=== PATIENT | male | born 1995 | race Caucasian/White ===

== ENCOUNTER 2020-01-18 10:28 | Emergency (ER) | payer BC, OTHER ==
[2020-01-18 11:30] VITALS: BP 133/81
--- NOTE | 2020-01-18 12:05 | UC ---
General HPI - HPI Summary HPI Summary: 24 yo WM sent by his boss to e sure he can work as he was witnessed to have episode of sneezing but without URI sx, pt denies f/c/n/v/d/or acute URI sx currently. - History of Current Complaint Chief Complaint: UCGeneralIllness Stated Complaint: CONGESTION/SINUSES Time Seen by Provider: 01/18/20 11:30 Hx Obtained From: Patient Onset/Duration: Sudden Onset Pain Intensity: 0 - Allergy/Home Medications Allergies/Adverse Reactions: Allergies Allergy/AdvReac Type Severity Reaction Status Date / Time No Known Allergies Allergy Verified 01/18/20 11:27 Home Medications: Home Medications NK [No Home Medications Reported] 01/18/20 [History Confirmed 01/18/20] PMH/Surg Hx/FS Hx/Imm Hx Other History Of: Negative For: HIV, Hepatitis B, Hepatitis C - Surgical History Surgical History: Yes Surgery Procedure, Year, and Place: elbow surgery 2008 - Family History Known Family History: Positive: Cardiac Disease, Non-Contributory Negative: Renal Disease - Social History Occupation: Employed Full-time Alcohol Use: Occasionally Substance Use Type: None Smoking Status (MU): Never Smoked Tobacco Type: Smokeless Tobacco Amount Used/How Often: 1 can/week - Immunization History Most Recent Influenza Vaccination: 2014 Review of Systems All Other Systems Reviewed And Are Negative: Yes Constitutional: Positive: Negative Skin: Positive: Negative Eyes: Positive: Negative ENT: Positive: Negative Cardiovascular: Positive: Negative Genitourinary: Positive: Negative Motor: Positive: Negative Neurovascular: Positive: Negative Neurological/Mental Status: Positive: Negative Psychological: Positive: Negative Physical Exam Triage Information Reviewed: Yes Appearance: Well-Appearing Vital Signs: Initial Vital Signs Temp 36.1 C 01/18/20 11:26 Pulse 60 01/18/20 11:26 Resp 14 01/18/20 11:26 BP 133/81 01/18/20 11:26 Pulse Ox 100 01/18/20 11:26 Vital Signs Reviewed: Yes Eye Exam: Normal Eyes: Positive: Conjunctiva Clear ENT: Positive: Normal ENT inspection Respiratory: Positive: Lungs clear Cardiovascular Exam: Normal Cardiovascular: Positive: RRR Musculoskeletal Exam: Normal Psychological Exam: Normal Skin Exam: Normal Course/Dx - Course Course Of Treatment: Pt is currenty well, displays NO s/s of illness or URI sx, ok to work, note given - Diagnoses Provider Diagnosis: Well adult exam Discharge ED - Sign-Out/Discharge Documenting (check all that apply): Patient Departure All imaging exams completed and their final reports reviewed: No Studies - Discharge Plan Condition: Stable Disposition: HOME Patient Education Materials: Normal Exam (ED) Forms: *Work Release Referrals: No Primary Care Phys,NOPCP [Primary Care Provider] - - Billing Disposition and Condition Condition: STABLE Disposition: Home
== END 2020-01-18 11:48 | disposition home or self-care (01) ==
LOC: UCCORT 10:28
DX: Z00.00 Encounter for general adult medical examination without abnormal findings (principal); F17.220 Nicotine dependence, chewing tobacco, uncomplicated
CPT/HCPCS: 99201; G0463